=== PATIENT | female | born 1960 | race Caucasian/White ===

== ENCOUNTER 2018-03-16 00:13 | Outpatient (CLI) | payer OTHER, SELFPAY ==
--- NOTE | 2018-03-16 10:15 | MERGE_ITS ---
*[facility]* *[facility]* [address] [place] [address] Date of study: 03/16/2018 Transthoracic Echocardiography M-mode, complete 2D, complete spectral Doppler, and color Doppler *STUDY CONCLUSIONS* Summary: 1. Left ventricle: The cavity size was normal. Systolic function was hyperdynamic. The estimated ejection fraction was 65-70%. Diastolic parameters were normal. There was no evidence of elevated ventricular filling pressure by Doppler parameters. 2. Aortic valve: There was mild regurgitation. 3. Mitral valve: There was mild regurgitation. 4. Right ventricle: The cavity size was normal. Wall thickness was normal. Systolic function was normal. 5. Atrial septum: No defect or patent foramen ovale was identified. 6. Pulmonary arteries: Pulmonary systolic pressure was in the range of 15mm Hg to 25mm Hg. 7. Inferior vena cava: The vessel was normal in size. The respirophasic diameter changes were in the normal range (greater than or equal to 50%), consistent with normal central venous pressure. *PATIENT PRESENTATION* Height: 149.9cm ((59in) ) S/D Pressure: 123 / 82 Weight: 68kg ((149.7lb) ) BSA: 1.71m^2 Test start time: 10:20 AM. Test stop time: 11:25 AM. PERFORMING Unknown ORDERING Fran Webb REFERRING Fran Webb PERFORMING [facility] PROJECT MANAGEMENT MANAGER Gregorai Giang *PROCEDURE DATA* Procedure information: This study was interpreted by [facility]. Pertinent images and digital data are archived for permanent storage and are available for subsequent review. No prior study was available for comparison. Study status: Routine. Transthoracic echocardiography. M-mode, complete 2D, complete spectral Doppler, and color Doppler. A Transthoracic Echocardiogram was performed. Scanning was performed from the parasternal, apical, subcostal, and suprasternal notch acoustic windows. Images were obtained using an 2houses2000 cardiac ultrasound machine. Image quality was adequate. Study completion: The patient tolerated the procedure well. History: PMH: Syncope. *CARDIAC ANATOMY* Left ventricle: The cavity size was normal. Systolic function was hyperdynamic. The estimated ejection fraction was 65-70%. The tissue Doppler parameters were normal. Diastolic parameters were normal. There was no evidence of elevated ventricular filling pressure by Doppler parameters. Aortic valve: Probably trileaflet. Doppler: There was no stenosis. There was mild regurgitation. VTI ratio of LVOT to aortic valve: 0.96. Valve area (VTI): 2.7cm^2. Indexed valve area (VTI): 1.6cm^2/m^2. Peak velocity ratio of LVOT to aortic valve: 0.93. Valve area (Vmax): 2.6cm^2. Indexed valve area (Vmax): 1.5cm^2/m^2. Mean velocity ratio of LVOT to aortic valve: 0.8. Valve area (Vmean): 2.3cm^2. Indexed valve area (Vmean): 1.3cm^2/m^2. Mean gradient (S): 3mm Hg. Peak gradient (S): 6mm Hg. Aorta: Aortic root: The aortic root was normal in size. Ascending aorta: The ascending aorta was mildly dilated. Mitral valve: Doppler: There was no evidence for stenosis. There was mild regurgitation. Valve area by pressure half-time: 3.2cm^2. Indexed valve area by pressure half-time: 1.9cm^2/m^2. Left atrium: The atrium was normal in size. Atrial septum: No defect or patent foramen ovale was identified. Right ventricle: The cavity size was normal. Wall thickness was normal. Systolic function was normal. Pulmonic valve: Doppler: There was no evidence for stenosis. There was no significant regurgitation. Peak gradient (S): 3mm Hg. Tricuspid valve: Doppler: There was mild regurgitation. Pulmonary artery: Poorly visualized. Pulmonary systolic pressure was in the range of 15mm Hg to 25mm Hg. Right atrium: The atrium was normal in size. Pericardium: There was no pericardial effusion. Systemic veins: Inferior vena cava: The vessel was normal in size. The respirophasic diameter changes were in the normal range (greater than or equal to 50%), consistent with normal central venous pressure. Measurements Left ventricle Value Reference LV ID, ED, PLAX 4.1 cm 3.5 - 6.0 LV ID, ES, PLAX 2.8 cm 2.1 - 4.0 LV PW thickness, ED, PLAX 0.7 cm LV end-diastolic volume, 1-p A2C 61 ml LV ejection fraction, 1-p A2C 78 % LV end-diastolic volume, 1-p A4C 45 ml LV ejection fraction, 1-p A4C 68 % LV e', lateral 0.133 m/sec LV E/e', lateral 4 LV e', medial 0.08 m/sec LV E/e', medial 7 LV e', average 0.107 m/sec LV E/e', average 5 Ventricular septum Value Reference IVS thickness, ED, PLAX 0.7 cm LVOT Value Reference LVOT ID, A-P 1.9 cm LVOT area 2.8 cm^2 LVOT peak velocity, S 1.14 m/sec LVOT mean velocity, S 0.64 m/sec LVOT VTI, S 21.1 cm LVOT peak gradient, S 5.2 mm Hg LVOT mean gradient, S 2.1 mm Hg Stroke volume (SV), LVOT DP 59 ml Stroke index (SV/bsa), LVOT DP 35 ml/m^2 Aortic valve Value Reference Aortic valve peak velocity, S 1.2 m/sec Aortic valve mean velocity, S 0.8 m/sec Aortic valve VTI, S 21.9 cm Aortic mean gradient, S 3 mm Hg Aortic peak gradient, S 6 mm Hg VTI ratio, LVOT/AV 0.96 Aortic valve area, VTI 2.7 cm^2 Velocity ratio, peak, LVOT/AV 0.93 Aortic valve area, peak velocity 2.6 cm^2 Velocity ratio, mean, LVOT/AV 0.8 Aortic valve area, mean velocity 2.3 cm^2 Aortic valve area/bsa, mean velocity 1.3 cm^2/m^2 Aorta Value Reference Aortic root ID, ED 2.5 cm Ascending aorta ID, A-P, S 3.1 cm Left atrium Value Reference LA ID, A-P, ES 2.9 cm LA ID/bsa, A-P 1.7 cm/m^2 <=2.2 LA area, ES, A4C 14.1 cm^2 8.8 - 23.4 LA area, ES, A2C 15 cm^2 LA volume, ES, 2-p 36 ml LA volume/bsa, ES, 2-p 21 ml/m^2 LA/aortic root ratio 1.15 Mitral valve Value Reference Mitral E-wave peak velocity 0.53 m/sec Mitral A-wave peak velocity 0.62 m/sec Mitral deceleration time (H) 234 ms 150 - 230 Mitral pressure half-time 68 ms Mitral E/A ratio, peak 0.86 Mitral valve area, PHT, DP 3.2 cm^2 Tricuspid valve Value Reference Tricuspid regurg peak velocity 2.2 m/sec Tricuspid peak RV-RA gradient 20.2 mm Hg Right atrium Value Reference RA area, ES, A4C 13.4 cm^2 8.3 - 19.5 Pulmonic valve Value Reference Pulmonic peak gradient, S 3 mm Hg Legend: (L) and (H) nichelle values outside specified reference range. I have personally reviewed the images and have reviewed and edited the reported findings. Electronically signed by Jose Juan Sun MD 03/16/2018 16:45
== END 2018-03-16 00:14 ==
PROVIDERS: Visit Provider Student in an Organized Health Care Education/Training Program
DX: R55 Syncope and collapse (principal); I08.0 Rheumatic disorders of both mitral and aortic valves
CPT/HCPCS: 93306

== ENCOUNTER 2022-05-19 07:24 | Emergency (ER) | payer OTHER, SELFPAY ==
[2022-05-19 07:32] VITALS: BP 150/89; PULSE 91; RESP 18; TEMP 36.7; O2SAT 97
--- OUTSIDE RECORDS SUMMARY | 2022-05-19 07:36 | XMS_ITS | Encounter Summary ---
:1960 Demographics Home Phone Preferred Language Unknown Marital Status Unknown Yarsanism Affiliation Unknown Race Unknown Ethnic Group Unknown Author Organization [facility] Address [address] [place] [address] Care Team Providers Name Role Phone Unavailable Primary Care Provider Unavailable Encounter Details Date Type Department Care Team Description 10/21/2020 Lab Requisition [facility] Outr Resulting Lab, Pathology & Laboratory Provider [facility] [address], [place] [address] [phone] Social History Tobacco Use Types Packs/Day Years Used Date Never Assessed Sex Assigned at Date Recorded Not on file documented as of this encounter Plan of Treatment Not on filedocumented as of this encounter Procedures Procedure Name Priority Date/Time Associated Diagnosis Comme nts COVID-19 TEST [facility] Today 10/21/2020 8:56 EST LAB PCR COVID-19 TESTING Routine 10/21/2020 8:56 EST Resu lts for this procedure are i n the results section. documented in this encounter Results COVID-19 TEST [facility] LAB PCR (10/21/2020 8:56 EST) Specimen Swab - Entire nasopharynx (body structur e) Performing Organization Address City/State/ZIP Code Phon e Number [facility] [address] [place] [address] SERVICES COVID-19 TESTING (10/21/2020 8:56 EST) COVID-19 rt-PCR Negative Negative [facility] Result Comment: [facility] This test has not been FDA c leared or approved. This test has been authorized by FDA under an EUA for use by authorized laboratories. This test has been authorized only for detection of nucleic acid fro SERVICES m 2019-nCoV, not for any oth er viruses or pathogens. This test is only authorized for the duration of the declaration that circumstances exist justifying the authorization of emergency use of in vitro d iagnostic tests for detectio n and/or diagnosis of 2019-nCoV under section 564(b)(1) of Act, 21 U.S.C ?? 360bbb-3(b) (1), unless the authorization is terminated or revoked sooner. Negative results do not prec lude 2019-nCoV infection and should not be used as the sole basis for treatment or other patient management decisions. Negative results must be combined with clinical observa tions, patient history, and epidemiological informatio n. Performed on the BiOWi[employer] Fusion instrument Performing Lab [place] [facility] Lab [facility] SERVICES Specimen Swab Performing Organization Address City/State/ZIP Code Phon e Number [facility] [address] [phone] SERVICES documented in this encounter Visit Diagnoses Not on filedocumented in this encounter
--- NOTE | 2022-05-19 08:17 | W.ED.GENAD ---
Discharge Plan Disposition Patient Disposition: HOME Condition: Stable Discharge Details Clinical Impression: Abscess, dental Primary Care Provider: None,None ED Provider: Xiomara Walker Home Meds and New Rx's Prescriptions: New clindamycin HCl [Cleocin HCl] 150 mg capsule 450 mg PO TID 10 Days Qty: 90 0RF Continued ibuprofen 200 MG tablet 600 mg PO DAILY Discharge Instructions Instructions: Dental Abscess (ED) Additional Instructions: ? [facility], please call and let them know this is an ER follow-up in need of xrays and close follow-up motrin/tylenol as needed for pain antibiotics will likely take 48 hours to work return with dramatic increase in swelling, fever, difficulty swallowing, or with any new or worsening complaints Stand Alone Forms: Work Release Medical Decision Making Concern for dental abscess, needs close outpatient follow-up with dentist, placed on clindamycin with return precautions reviewed Discharged home in stable condition with stable vitals Of note, patient does not have current dentist or PCP, referral placed for outpatient follow-up with PCP HPI General Date/Time Provider Initiated Documentation: 05/19/22 08:01. HPI Narrative: This is a 61-year-old female presents with report of swelling to left side of face which started yesterday. Patient states is painful to touch. She states she has a fracture to in this area. She denies any difficulty swallowing, chest pain, shortness of breath. Related Data Home Medications Medication Instructions Recorded Confirmed ibuprofen 200 mg tablet 600 mg PO DAILY 01/22/18 05/19/22 clindamycin HCl 150 mg capsule 450 mg PO TID 10 days #90 caps 05/19/22 (Cleocin HCl) Previous Rx's Medication Instructions Recorded clindamycin HCl 150 mg capsule 450 mg PO TID 10 days #90 caps 05/19/22 (Cleocin HCl) Allergies Allergy/AdvReac Type Severity Reaction Status Date / Time wasps Allergy Severe Uncoded 05/19/22 07:35 General Stated Complaint: FacialProb SHARIFA: 4 Review of Systems All systems reviewed & are unremarkable except as noted in HPI and below PFSH All Active Problems (Updated 05/19/22 @ 08:20 by SHANIKA Doyle) Abscess, dental (Acute) Encounter for screening for other viral diseases (Acute) Social History (Updated 08/24/18 @ 10:21 by Cait Pablo RN) Smoking/Tobacco Use Status: Current every day Tobacco Type: cigarettes Smoking risk assessment performed?: Yes Alcohol Intake: never Drug use: Occasionally Substance use type: marijuana Do you feel safe at home: Yes Do you feel safe in your relationship?: Yes Exam Const General: cooperative, comfortable and no acute distress Orientation: alert and oriented x3 [facility] Head images: 1. swelling, tenderness, erythema widespread dental decay Throat image: 1. fractures noted , no evidence of deep space infection no trismus Eyes Pupils: PERRL Resp Effort & Inspection: normal respiratory effort Auscultation: clear to auscultation bilaterally Cardio Rate: regular rate Rhythm: regular rhythm Neuro General: patient alert and patient oriented x3 Course Vital Signs Vital signs: Vital Signs Temperature 36.7 C 05/19/22 07:32 Pulse 91 H 05/19/22 07:32 Respiratory Rate 18 05/19/22 07:32 Blood Pressure 150/89 H 05/19/22 07:32 Pulse Oximetry 97 05/19/22 07:32 Temperature 36.7 C 05/19/22 07:32 Temperature Source Temporal Artery Scan 05/19/22 07:32 Pulse 91 H 05/19/22 07:32 Respiratory Rate 18 05/19/22 07:32 Respiratory Effort Non-Labored 05/19/22 07:36 Blood Pressure 150/89 H 05/19/22 07:32 Blood Pressure Position Sitting 05/19/22 07:32 Pulse Oximetry 97 05/19/22 07:32 Oxygen Delivery Method Room Air 05/19/22 07:32 Oxygen Flow Rate 0 05/19/22 07:32
--- NOTE | 2022-05-19 08:36 | NUR.NOTE ---
Nursing Note: PT info given to care management to establish care with a PCP & follow up. Nimisha, ED
[2022-05-19] MEDS: Clindamycin 150 MG CAP 450 MG PO (08:42)
== END 2022-05-19 08:44 | disposition home or self-care (01) ==
PROVIDERS: Emergency Provider Physician Assistant
DX: K04.7 Periapical abscess without sinus (principal); F17.210 Nicotine dependence, cigarettes, uncomplicated
CPT/HCPCS: 99283; 99284

== ENCOUNTER 2022-10-28 12:36 | Outpatient (CLI) | payer OTHER, SELFPAY ==
--- NOTE | 2022-10-28 11:15 | DI.RAD_ITS ---
Exam(s) XR SACRUM COCCYX EXAM: XR SACRUM COCCYX CLINICAL HISTORY: S/P fall 10/18 - persistent pain Z91.81 M53.3 SACROCOCCYGEAL. TECHNIQUE: 2D digital imaging was performed. Three images were obtained. COMPARISON: No exams were available for comparison FINDINGS: BONES: No acute fracture is present. No bony destructive lesion is seen. JOINTS: No dislocation present. There are degenerative changes seen in the lower lumbar spine with di sc space narrowing and periarticular spurring. There are degenerative changes seen at the sacroiliac joints bilaterally. There is a transitional lumbosacral vertebral body. SOFT TISSUE: Normal. IMPRESSION: Degenerative changes in the lower lumbar spine and sacrum. DATA REPOSITORY: RADIATION DOSE DELIVERED:
== END 2022-10-28 12:56 ==
PROVIDERS: Visit Provider Nurse Practitioner Family
DX: M53.3 Sacrococcygeal disorders, not elsewhere classified (principal); Z91.81 History of falling; M47.816 Spondylosis without myelopathy or radiculopathy, lumbar region; M51.36 Other intervertebral disc degeneration, lumbar region
CPT/HCPCS: 72220